=== PATIENT | female | born 1985 | race Caucasian/White ===

== ENCOUNTER 2019-01-29 06:32 | Day surgery (SDC) | payer OTHER ==
[2019-01-29 06:51] LABS: BASOPHILS # (AUTO) 0.1 10^3/uL (0.0-0.1); BASOPHILS % (AUTO) 0.6 %; EOSINOPHILS # (AUTO) 0.1 10^3/uL (0.0-0.7); EOSINOPHILS % (AUTO) 1.1 %; HGB - HEMOGLOBIN 13.5 g/dL (12.0-16.0); LYMPHOCYTES # (AUTO) 4.5 10^3/uL (1.5-3.5); LYMPHOCYTES % (AUTO) 43.2 %; MEAN CORPUSCULAR HEMOGLOBIN 30.6 pg (27.0-31.0); MEAN CORPUSCULAR HGB CONC 33.3 g/dL (32.0-36.0); MEAN CORPUSCULAR VOLUME 91.8 fL (81.0-99.0); MEAN PLATELET VOLUME 10.8 fL (7.9-10.8); MONOCYTES % (AUTO) 9.1 %; NEUTROPHILS # (AUTO) 4.8 10^3/uL (1.5-6.6); NEUTROPHILS % (AUTO) 45.7 %; PLT - PLATELET COUNT 257 10^3/uL (130-450); RED BLOOD COUNT 4.41 10^6/uL (4.20-5.40); RED CELL DISTRIBUTION WIDTH 12.5 % (12.0-15.0); WHITE BLOOD COUNT 10.4 x10^3/uL (4.8-10.8)
[2019-01-29 06:54] LABS: BILIRUBIN,URINE NEGATIVE (NEGATIVE); GLUCOSE, URINE (UA) NEGATIVE (NEGATIVE); KETONES,URINE (UA) NEGATIVE (NEGATIVE); LEUKOCYTE ESTERASE, URINE NEGATIVE (NEGATIVE); NITRITE,URINE NEGATIVE (NEGATIVE); OCCULT BLOOD,URINE NEGATIVE (NEGATIVE); PROTEIN,URINE NEGATIVE (NEGATIVE); UROBILINOGEN,URINE 0.2 (NORMAL) E.U./dL (NORMAL)
[2019-01-29 06:55] LABS: CLARITY,URINE CLEAR (CLEAR); HCG UR QUAL NEGATIVE
[2019-01-29 07:07] LABS: ALBUMIN 4.2 g/dL (3.2-5.5); ALBUMIN/GLOBULIN RATIO 1.1 (1.0-2.2); BILIRUBIN,TOTAL 0.5 mg/dL (0.2-1.0); CALCIUM 9.5 mg/dL (8.5-10.3); TOTAL PROTEIN 8.1 g/dL (6.7-8.2)
[2019-01-29] MEDS ORDERED: SODIUM CHLORIDE 0.9% 1,000 ML IV ONE (07:31)
[2019-01-29] MEDS ORDERED: ONDANSETRON 4 MG/2 ML VIAL IVP STA (07:31)
[2019-01-29] MEDS ORDERED: KETOROLAC 30 MG/ML VIAL IVP STA (07:31)
--- NOTE | 2019-01-29 07:38 | ED Physician Documentation ---
PD HPI ABD PAIN - Stated complaint Stated Complaint: ABD PX - Chief complaint Chief Complaint: Abd Pain - History obtained from History obtained from: Patient - History of Present Illness Timing - onset: Enter time (0000) Timing - duration: Hours Timing - details: Abrupt onset, Still present Quality: Cramping, Sharp, Pain Location: RUQ Radiation: Upper back Improved by: Laying still Worsened by: Moving, Breathing, Position, Palpation Associated symptoms: Nausea Similar symptoms before: No diagnosis Recently seen: Not recently seen - Additional information Additional information: Previously well 33-year-old female had fried chicken and potatoes last night at about midnight she awoke with pain in the right upper quadrant. Pain radiates to the back and she has had similar episodes previously lasting about 3 hours. She has had pain throughout the night and has been unable to sleep and comes in this morning with persistent right upper quadrant pain that is severe. The patient indicates that she has had a prior ultrasound of gout gallbladder about 10 years ago showing sludge. Review of Systems Constitutional: denies: Fever Eyes: denies: Decreased vision Ears: denies: Ear pain Nose: denies: Congestion Throat: denies: Sore throat Cardiac: denies: Chest pain / pressure, Palpitations Respiratory: denies: Dyspnea, Cough GI: reports: Abdominal Pain, Nausea : denies: Dysuria, Frequency Skin: denies: Rash Musculoskeletal: reports: Back pain. denies: Neck pain Neurologic: denies: Generalized weakness, Focal weakness, Numbness PD PAST MEDICAL HISTORY - Past Medical History Past Medical History: No - Past Surgical History Past Surgical History: Yes General: Other - Present Medications Home Medications: Ambulatory Orders Medication Instructions Recorded Confirmed Cholecalciferol [Vitamin D3] 5,000 PO DAILY 01/29/19 Multivitamin [Multivitamins] 1 each PO DAILY 01/29/19 01/29/19 - Allergies Allergies/Adverse Reactions: Allergies Allergy/AdvReac Type Severity Reaction Status Date / Time No Known Drug Allergies Allergy Verified 01/29/19 06:37 - Social History Does the pt smoke?: No Smoking Status: Never smoker Does the pt drink ETOH?: Yes ETOH Use: Wine Does the pt have substance abuse?: No - Immunizations Immunizations are current?: Yes PD ED PE NORMAL - Vitals Vital signs reviewed: Yes (tachy and hypertensive ) - General General: Alert and oriented X 3, Well developed/nourished, Other (The patient appears uncomfortable panting in pain. ) - HEENT HEENT: Atraumatic, PERRL, EOMI - Neck Neck: Supple, no meningeal sign, No bony TTP - Cardiac Cardiac: No murmur, Other (tachy to 110) - Respiratory Respiratory: No respiratory distress, Clear bilaterally - Abdomen Abdomen: Soft, Other (RUQ tenderness with + murphies. No distention. ) - Back Back: No CVA TTP, No spinal TTP - Derm Derm: Normal color, Warm and dry, No rash - Extremities Extremities: No deformity, No edema - Neuro Neuro: Alert and oriented X 3, drug worker 2-12 intact, No motor deficit, No sensory deficit, Normal speech Eye Opening: Spontaneous Motor: Obeys Commands Verbal: Oriented GCS Score: 15 - Psych Psych: Normal mood, Normal affect Results - Vitals Vitals: Vital Signs - 24 hr 01/29/19 01/29/19 01/29/19 06:35 09:15 11:17 Temperature 36.3 C L Heart Rate 108 H 84 82 Respiratory 18 14 18 Rate Blood Pressure 149/92 H 129/78 132/84 H O2 Saturation 100 99 98 Oxygen O2 Source Room air - Labs Labs: Laboratory Tests 01/29/19 01/29/19 01/29/19 06:43 06:45 06:45 WBC 10.4 RBC 4.41 Hgb 13.5 Hct 40.5 MCV 91.8 MCH 30.6 MCHC 33.3 RDW 12.5 Plt Count 257 MPV 10.8 Neut # (Auto) 4.8 Lymph # (Auto) 4.5 H [place] # (Auto) 1.0 Eos # (Auto) 0.1 Baso # (Auto) 0.1 Absolute Nucleated RBC 0.00 Nucleated RBC % 0.0 Sodium 140 Potassium 3.7 Chloride 107 Carbon Dioxide 22 Anion Gap 11.0 BUN 20 Creatinine 1.0 Estimated GFR (MDRD) 64 L Glucose 102 H Calcium 9.5 Total Bilirubin 0.5 AST 17 ALT 18 Alkaline Phosphatase 64 Total Protein 8.1 Albumin 4.2 Globulin 3.9 Albumin/Globulin Ratio 1.1 Lipase 29 Urine Color YELLOW Urine Clarity CLEAR Urine pH 6.0 Ur Specific [place] 1.015 Urine Protein NEGATIVE Urine Glucose (UA) NEGATIVE Urine Ketones NEGATIVE Urine Occult Blood NEGATIVE Urine Nitrite NEGATIVE Urine Bilirubin NEGATIVE Urine Urobilinogen 0.2 (NORMAL) Ur Leukocyte Esterase NEGATIVE Ur Microscopic Review NOT INDICATED Urine Culture Comments NOT INDICATED Urine HCG, Qual NEGATIVE - Rads (name of study) GB u/s Radiology: Prelim report reviewed (Impression: There is a gallstone in the neck of the gallbladder. There is borderline gallbladder wall thickening, trace pericholecystic fluid, and tenderness with transducer pressure. Findings are consistent with acute cholecystitis in the appropriate clinical setting.), EMP read indepedently, See rad report Procedures - Bedside sono Bedside sono by EMP: With use of bedside ultrasound the right upper quadrant is imaged the gallbladder is distended there are no obvious stones the gallbladder wall does appear thickened at the base but without pericholecystic fluid. PD MEDICAL DECISION MAKING - ED course Complexity details: reviewed results, re-evaluated patient, considered differential, d/w patient, d/w call center consultant (Santiago consulted 09:40 : recommends pain control will evaluate in the ED. ) ED course: 33-year-old female with intermittent gallbladder symptoms has persistence of her pain overnight she has a swollen tender gallbladder with pericholecystic fluid a stone lodged in the neck of the gallbladder and a thickened gallbladder wall. Departure - Departure Disposition: ED Transfer to [facility] Clinical Impression: Cholecystitis
--- NOTE | 2019-01-29 09:19 | Ultrasound Report ---
Reason: RUQ pain Procedure Date: 01/29/2019 Accession Number: [id number] / [id number] Procedure: US - Abdomen Limited CPT Code: FULL RESULT: EXAM: ABDOMEN ULTRASOUND LIMITED, RUQ EXAM DATE: 01/29/2019 09:07 AM. CLINICAL HISTORY: Right upper quadrant abdominal pain. COMPARISON: None. TECHNIQUE: Real-time scanning was performed with static images obtained. FINDINGS: Liver: Normal in size and echotexture. The right lobe of the liver measures up to 18 cm. Main portal vein flow: Hepatopetal. Gallbladder: There is borderline gallbladder wall thickening measuring up to 3.6 mm. There is an echogenic shadowing stone in the neck of the gallbladder, which does not move with changes in patient positioning. Trace pericholecystic fluid is present. There is tenderness with transducer pressure. Biliary System: CBD measures 5.2 mm. No intrahepatic or extrahepatic ductal dilatation. Other: The right kidney is unremarkable. No right hydronephrosis. IMPRESSION: There is a gallstone in the neck of the gallbladder. There is borderline gallbladder wall thickening, trace pericholecystic fluid, and tenderness with transducer pressure. Findings are consistent with acute cholecystitis in the appropriate clinical setting. RADIA
[2019-01-29] MEDS ORDERED: HYDROmorphone 1 MG/ML CARPUJECT IVP STA (09:43)
[2019-01-29] MEDS ORDERED: CEFEPIME 1 GM in SODIUM CHLORIDE 0.9% MINIBAG 100 ML IV STA (09:44)
[2019-01-29] MEDS ORDERED: NEOSTIGMINE 1 MG/1 ML 10 ML MDV IVP ONE (12:06)
[2019-01-29] MEDS ORDERED: MIDAZOLAM 2 MG/2 ML VIAL IVP ONE (12:06)
[2019-01-29] MEDS ORDERED: fentaNYL 250 MCG/5 ML VIAL IVP ONE (12:06)
[2019-01-29] MEDS ORDERED: DEXAMETHASONE 4 MG/ML VIAL IVP ONE (12:06)
[2019-01-29] MEDS ORDERED: GLYCOPYRROLATE 1 MG/5 ML VIAL IVP ONE (12:06)
--- NOTE | 2019-01-29 12:12 | CONSULTATION NOTE ---
Referring Provider Name of Referring Provider:: Dr. Darek Stevenson Consult Date: 01/29/19 Chief Complaint - Chief Complaint Chief Complaint: Right upper quadrant abdominal pain (severe) History of Present Illness - Admitted From Admitted From:: Not admitted - outpatient - History Obtained From Records Reviewed: Yes History obtained from: Patient Exam Limitations: None - History of Present Illness HPI Comment/Other: Dr. Darek Stevenson called me on consultation on this very pleasant 33-year-old female who was evaluated in room 9 at [facility]'s emergency department. 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 She is had approximately 10- year history of episodic right upper quadrant pain but in the past 2 months she has had 3 attacks that have been progressively worse. The attack started last night at midnight after eating grilled chicken and asparagus. It was described as a band around her abdomen and the pain was qualified as severe. Normally the pain goes away but it did not in this case prompting her to come to the emergency department. She denies hematemesis melena or hematochezia. She was a bit nauseous. She describes the pain as being present underneath her right rib cage. She has plans to go to [facility] in 2 weeks with her 3-year-old and 5-year-old daughters. 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 : reports: None HEENT: reports: None Psych: reports: None Musculoskeletal: reports: None Derm: reports: None - Past Surgical History General: reports: Other Meds/Allgy - Home Medications Home Medications: Ambulatory Orders Medication Instructions Recorded Confirmed Cholecalciferol [Vitamin D3] 5,000 PO DAILY 01/29/19 Multivitamin [Multivitamins] 1 each PO DAILY 01/29/19 01/29/19 - Allergies Allergies/Adverse Reactions: Allergies Allergy/AdvReac Type Severity Reaction Status Date / Time No Known Drug Allergies Allergy Verified 01/29/19 06:37 Review of Systems - Constitutional Constitutional: denies: Fatigue, Fever, Chills, Malaise - Eyes Eyes: denies: Pain - Ears, Nose & Throat Ears, Nose & Throat: denies: Ear pain - Cardiovascular Cariovascular: denies: Irregular heart rate - Respiratory Respiratory: denies: Cough - Gastrointestinal Gastrointestinal: reports: Abdominal pain. denies: Rectal bleeding, Black stools, Bloody stools - Genitourinary Genitourinary: denies: Dysuria - Musculoskeletal Musculoskeletal: denies: Muscle pain - Integumentary Integumentary: denies: Rash - Neurological Neurological: denies: General weakness, Focal weakness Exam - Vital Signs Reviewed Vital Signs: Yes Vital Signs: Vital Signs x48h Temp Pulse Resp BP Pulse Ox 01/29/19 11:17 82 18 132/84 H 98 01/29/19 09:15 84 14 129/78 99 01/29/19 06:35 36.3 C L 108 H 18 149/92 H 100 - Physical Exam General Appearance: positive: No acute distress Eyes Bilateral: positive: No lid inflammation, Conjunctivae nml, No scleral icterus ENT: positive: Dry mucous membranes Neck: positive: Trachea midline Respiratory: positive: Chest non-tender Cardiovascular: positive: Regular rate & rhythm Abdomen: positive: Nml bowel sounds, Tenderness (Exquisite in the right upper quadrant.) Skin: positive: Color nml Extremities: positive: Non-tender, Nml appearance Neurologic/Psychiatric: positive: Oriented x3, Motor nml, Sensation nml, Mood/affect nml Conclusion/Plan - Diagnosis Diagnosis: Acute on chronic cholecystitis - Plan Plan: Laparoscopic cholecystectomy, possible open cholecystectomy, possible intraoperative cholangiogran, possible common bile duct exploration. The indications, procedure, alternatives including no surgery, possible risks incl uding infection (deep or superficial), bleeding requiring transfusion (with all of its risks), common bile duct injury requring repair and additional surgery, and were fully explained to the patient and all questions answered. I also explained the pathophysiology. I explained that following the surgery I did not want her lifting anything over 15 pounds for 6 weeks to allow for optimal healing and to decrease the likelihood that a hernia would occur. All questions were fully answered. Verbal and written consent was obtained. The patient, in preparation for surgery will be nothing by mouth, and receive 2 gm of Cephalexin with induction (Cefepime was given at 1030). I asked her to c ontact me with any surgical questions and her concerns and she stated that she would. I asked her to let me know if there is any way we can make her stay at [facility] more comfortable and she stated that she would let me know. The plan is to do this operation as an outpatient procedure and to discharge her home following the procedure. 45 minutes of [id number] time spent with the patient, the majority of which was spent in discussion, coordination of care, and completion of the requisite paperwork Cookie disclaimer: This document was created in part using voice recognition technology. Because of the inherent limitations of the system ([employer]'s Dragon Dict[employer] user manual states that the licensee understands that speech recognition is a statistical process and that recognition errors are inherent in the process), occasional same sounding word substitutions and grammatical errors do occur and persist despite proofreading. Please read this document for context. - Lab Results Lab results reviewed: Yes Fish Bones: 01/29/19 06:45 01/29/19 06:45 - Diagnostic Imaging Results Diagnostic Imaging Results: positive: Final report reviewed
--- NOTE | 2019-01-29 12:43 | ANESTHESIA ---
Pre-Anesthesia VS, & Labs - Diagnosis Diagnosis Acute on chronic cholecystitis - Procedure Albanian neena Vital Signs: Temp Pulse Resp BP Pulse Ox 36.3 C L 82 18 132/84 H 98 01/29/19 06:35 01/29/19 11:17 01/29/19 11:17 01/29/19 11:17 01/29/19 11:17 Height 5 ft 6 in Weight (kg) 104.326 kg Body Mass Index 37.1 - NPO >8 hours, Other - Is Patient ?: No - Lab Results Current Lab Results: Laboratory Tests 01/29/19 06:45: Sodium 140, Potassium 3.7, Chloride 107, Carbon Dioxide 22, Anion Gap 11.0, BUN 20, Creatinine 1.0, Estimated GFR (MDRD) 64 L, Glucose 102 H , Calcium 9.5, Total Bilirubin 0.5, AST 17, ALT 18, Alkaline Phosphatase 64, Total Protein 8.1, Albumin 4.2, Globulin 3.9, Albumin/Globulin Ratio 1.1, Lipase 29 01/29/19 06:45: WBC 10.4, RBC 4.41, Hgb 13.5, Hct 40.5, MCV 91.8, MCH 30.6, MCHC 33.3, RDW 12.5, Plt Count 257, MPV 10.8, Neut # (Auto) 4.8, Lymph # (Auto) 4.5 H , [place] # (Auto) 1.0, Eos # (Auto) 0.1, Baso # (Auto) 0.1, Absolute Nucleated RBC 0.00, Nucleated RBC % 0.0 Lab results reviewed: Yes Fish Bones: 01/29/19 06:45 01/29/19 06:45 Home Medications and Allergies Home Medications: Ambulatory Orders Cholecalciferol [Vitamin D3] 5,000 PO DAILY 01/29/19 Multivitamin [Multivitamins] 1 each PO DAILY 01/29/19 Cholecalciferol [Vitamin D3] 5,000 PO DAILY 01/29/19 Multivitamin [Multivitamins] 1 each PO DAILY 01/29/19 Allergies/Adverse Reactions: Allergies Allergy/AdvReac Type Severity Reaction Status Date / Time No Known Drug Allergies Allergy Verified 01/29/19 06:37 Anes History & Medical History - Anesthetic History Anesthesia Complications: reports: No previous complications Family history of Anesthesia Complications: Denies Family history of Malignant Hyperthermia: Denies - Medical History Cardiovascular: reports: None Pulmonary: reports: None Gastrointestinal: reports: None Urinary: reports: None Neuro: reports: None Musculoskeletal: reports: None Endocrine/Autoimmune: reports: None Blood Disorders: reports: None Skin: reports: None Smoking Status: Never smoker Psychosocial: reports: No issues indicated - Surgical History General: Other Exam General: Alert Dental: WNL Mouth Opening: Greater than 4 Fingerbreadths Neck Mobility: Normal Mallampati classification: I Thyromental Distance: greater than 6 cm Respiratory: Rales (Cracles left lower lobe) Cardiovascular: Regular rate Mental/Cognitive Status: Alert/Oriented X3 Cognitive Status: Within normal limits Plan Anesthesia Type: General Consent for Procedure(s) Verified and Reviewed: Yes Code Status: Attempt Resuscitation ASA classification: 2-Mild systemic disease Is this case an emergency?: Yes
[2019-01-29] MEDS ORDERED: BUPIVACAINE 0.5% PF 10 ML VIAL ONE (12:51)
[2019-01-29] MEDS ORDERED: LACTATED RINGERS 1,000 ML IV ONE ×2 (12:57→13:49)
[2019-01-29] MEDS ORDERED: BUPIVACAINE 0.5% PF 30 ML VIAL INFIL ONE (13:24)
[2019-01-29] MEDS ORDERED: HYDROmorphone 0.5 MG/0.5 ML SYRINGE IVP PRN (14:18)
[2019-01-29] MEDS ORDERED: ONDANSETRON 4 MG/2 ML VIAL IVP PRN (14:18)
[2019-01-29] MEDS ORDERED: HYDROcod/ACETAM 5/325 MG TABLET PO PRN (14:18)
--- NOTE | 2019-01-29 14:21 | OPERATIVE REPORT ---
Operative Report - General Procedure Date: 01/29/19 Planned Procedure: Laparoscopic cholecystectomy Pre-Op Diagnosis: Acute on chronic cholecystitits Procedure Performed: Laparoscopic cholecystectomy Post Op Diagnosis: Acute on chronic cholecystitis - Procedure Note Primary Surgeon: Darek López MD Anesthesia Provider: Daphne Esparza CRNA Anesthesia Technique: General ET tube, Local (30 mL 1/2% marcaine) IV Fluids (mL): 1,100 Estimated Blood Loss (mL): 10 Drain/Tube Type: Other (None.) Complications: None. - Other Other Information/Narrative: OPERATIVE DESCRIPTION/REPORT: After verbal and written informed consent was obtained detailing the risks of infection, bleeding requiring transfusion with its risks, nerve injury, and , as well as the possibility of a colostomy, and after I met with the patient confirming the surgery, the patient was brought to the operative suite and placed supine on the operating table. Great care was taken to avoid pressure points to prevent pressure necrosis or nerve injury. Monitoring devices were applied along with TEDs and pneumatic compressive stockings (to prevent DVT). The patient received preoperative antibiotics for surgical pro phylaxis. Christian Esparza CRNA sedated and anesthetized the patient for the entire procedure. The patient was prepped and draped in the usual sterile manner. A "time in" then confirmed that the patient was identified with 3 identifiers (name, date and medical record number), the history and physical was in the chart, the signed consent confirming the procedure was in the chart, the patient was in the correct position, the aforementioned prophylactic measures were in place or given, we had the correct personnel and equipment to complete the procedure and that anesthesia, surgery and nursing were given an opportunity to express any concerns. With the agreement of everyone in the room, we proceeded with the operation. The initial incision was at the umbilicus and dissection to the linea alba was completed using blunt dissection. The linea alba was grasped with a Isai and incised. In a similar manner the peritoneum was grasped and incised using Metzenbaum scissors. In this location, a 12 mm blunt tipped, balloon tipped port was placed and the balloon was inflated to keep the port in position. The abdominal cavity was insufflated with carbon dioxide to steady-state pressure of 15 mmHg. Three additional 5 mm ports were placed in standard location for laparoscopic cholecystectomy (subxiphoid and 2 right subcostal) under direct vision of the 30 degree laparoscope and without incident. The patient was then placed in reverse Trendelenburg position and was rotated slightly to their left. The gallbladder fundus was grasped with an atraumatic grasper. Multiple adhes ions had to be taken down by blunt and sharp dissection along with electrocautery. Eventually, we identified the infundibulum, and this was then grasped and retracted inferior and laterally. Dissection was then begun in the angle of Calot. The cystic duct and (slightly medially and posteriorly) cystic artery were clearly identified. The critical view was obtained. Two clips proximally and one clip distally were used to control both the cystic duct and cystic artery. The clips were carefully placed to avoid occluding the juncture with the common bile duct. Both the cystic duct and then the cystic artery were then transected with laparoscopic doyle. The gallbladder was then removed from its fossa in a retrograde fashion using electrocautery. With the 30 degree 5 mm scope in the subxiphoid position, the gallbladder was placed in an EndoCatch bag to be extracted through the 12 mm port site. I irrigated the right upper quadrant with a liter of warm sterile saline, and the area was aspirated dry. I inspected the gallbladder fossa and there was no bleeding or bile leak. Clips on the cystic duct and cystic artery appeared to be secure. I briefly visually explored the abdomen. There was no other evidence of overt pathology. I injected the port sites at the peritoneal, fascial, and skin levels under direct vision with 0.5% Marcaine. All ports and the EndoCatch containing the gallbladder were removed. Following gallbladder removal, the remaining carbon dioxide was expelled from the abdomen. The fascia at the umbilicus was reapproximated using 2 [id number] 0 Vicryl sutures. The skin at each port site was approximated using a subcuticular 4-0 Monocryl. The surgical count of instruments, needles and sponges was reported as correct twice. Dermabond was applied. The patient was then awakened from anesthesia, extubated, and having tolerated the procedure well, was transported to the recovery room. No complications were encountered. A "time out" confi rmed the operation performed, the fluids given, the estimated blood loss and anesthesia, surgery and nursing were given an opportunity to express any concerns. Cookie disclaimer: This document was created in part using voice recognition technology. Because of the inherent limitations of the system ([employer]'s Dragon Dictate user manual states that the licensee understands that speech recognition is a statistical process and that recognition errors are inherent in the process), occasional same sounding word substitutions and grammatical errors do occur and persist despite proofreading. Please read this document for context.
[2019-01-29] MEDS ORDERED: ACETAMINOPHEN 1,000 MG/100 ML 100 ML IV ONE (14:36)
[2019-01-29] MEDS ORDERED: ONDANSETRON 4 MG/2 ML VIAL ONE (14:58)
[2019-01-29 15:15] VITALS: BP 122/73
[2019-01-29] MEDS ORDERED: HYDROcod/ACETAM 5/325 MG TABLET ONE (15:16)
== END 2019-01-29 12:06 | disposition home or self-care (01) ==
LOC: ED 06:32 → SDS 12:05
PROVIDERS: ATTEND Surgery
PROC: 0FT44ZZ Resection of Gallbladder, Percutaneous Endoscopic Approach (ICD-10-PCS; principal; 2019-01-29 12:45)
DX: K80.12 Calculus of gallbladder with acute and chronic cholecystitis without obstruction (principal)
CPT/HCPCS: 36415; 47562; 76705; 80053; 81003; 81025; 83690; 85025; A9270; J0131; J1170; J3010; J7120; 81001; 87086; 96361; 96365; 96375; 99285

== ENCOUNTER 2019-10-10 17:39 | Outpatient (CLI) | payer OTHER | END 2019-10-10 17:40 | disposition home or self-care (01) | LOC: COV 17:39 | PROVIDERS: ATTEND Family Medicine | DX: R50.9 Fever, unspecified (principal); R05 Cough; M79.10 Myalgia, unspecified site; R53.83 Other fatigue; J02.9 Acute pharyngitis, unspecified | CPT/HCPCS: 81599 ==